=== PATIENT | female | born 1940 | race Caucasian/White ===

== ENCOUNTER 2025-02-12 16:49 | Inpatient (IN) | payer MEDICARE, MEDICAID ==
[~2025-02-12] VITALS: Ht 165.1 cm; Wt 60.0 kg
[~2025-02-12 16:49] MED LIST: ALBU18HF12 IH; ALBU2.5V39 NEB; APIX5TAB PO; BENZ-227 PO; FLUT1BLS12 IH; FLUT1BLS19 IH; METO25 PO; METO25XL PO; PROM6.2527 PO; TIOT185 IH; TIOT4MIS3 PO
[2025-02-12] MEDS ORDERED: ONDANSETRON HCL 4 MG/2 ML VIAL IVP PRN (17:15)
[2025-02-12] MEDS ORDERED: MORPHINE SULFATE 2 MG/ML SYRINGE IVP PRN (17:15)
[2025-02-12] MEDS ORDERED: MORPHINE SULFATE 4 MG/ML SYRINGE IVP PRN (17:19)
[2025-02-12 17:27] LABS: PLATELET COUNT (AUTO) 451 K/uL (150-450); RED BLOOD CELL COUNT(AUTO) 3.48 MIL/uL (4.00-5.20); RED CELL DISTRIBUTION WIDTH 16.8 % (11.5-14.5); WHITE BLOOD COUNT (AUTO) 9.7 K/uL (4.5-11.0)
[2025-02-12 17:34] LABS: CALCIUM, TOTAL 7.5 mg/dL (8.8-10.5); CREATININE 0.50 mg/dL (0.60-1.30); GLOMERULAR FILTR. RATE CALC > 60 mL/min (>60); GLUCOSE,RANDOM 116 mg/dL (70-110); SODIUM SERUM 142 mmol/L (136-145); UREA NITROGEN, BLOOD 24 mg/dL (7-18)
[2025-02-12] MEDS: SODIUM CHLORIDE 0.9% 1,000 ML IV ONE (17:43)
[2025-02-12 17:44] LABS: TROPONIN I-HIGH SENSITIVITY 8 ng/L (<51)
[2025-02-12] MEDS: DIGOXIN 250 MCG/ML 2 ML AMP IVP ONE (17:44)
[2025-02-12] MEDS ORDERED: ALBUTEROL SULFATE 2.5 MG/0.5 ML NEB SOLUTION NEB PRN (17:45)
[2025-02-12 17:48] LABS: ASPARTATE AMINOTRANSFERASE 15.0 U/L (15-37); TOTAL PROTEIN, SERUM 6.3 g/dL (6.4-8.2)
[2025-02-12] MEDS: POTASSIUM CHLORIDE 20 MEQ ER TABLET PO ONE (17:53)
[2025-02-12] MEDS: DILTIAZEM HCL 5 MG/ML 5 ML VIAL IVP ONE (19:17)
[2025-02-12] MEDS: MAGNESIUM SULFATE 1 GM in DEXTROSE 5%-WATER 50 ML IV ONE (19:19)
[2025-02-12] MEDS: DOCUSATE SODIUM 100 MG CAPSULE PO SCH (20:13)
[2025-02-12 22:10] VITALS: BP 151/88; PULSE 85; RESP 18; TEMP 97.7; O2SAT 94
[2025-02-12] MEDS: APIXABAN 5 MG TABLET PO SCH (23:10)
[2025-02-13] VITALS (8 sets, daily range): BP systolic 99–135; BP diastolic 55–78; PULSE 93–109; RESP 17–19; TEMP 97.7–98.4; O2SAT 94–98
[2025-02-13] MEDS ORDERED: HEPARIN SODIUM,PORCINE 5,000 UNITS/ML VIAL SQ SCH
[2025-02-13 06:52] LABS: PLATELET COUNT (AUTO) 456 K/uL (150-450); RED BLOOD CELL COUNT(AUTO) 3.85 MIL/uL (4.00-5.20); RED CELL DISTRIBUTION WIDTH 16.7 % (11.5-14.5); WHITE BLOOD COUNT (AUTO) 7.8 K/uL (4.5-11.0)
[2025-02-13 07:08] LABS: CALCIUM, TOTAL 8.7 mg/dL (8.8-10.5); CREATININE 0.54 mg/dL (0.60-1.30); GLOMERULAR FILTR. RATE CALC > 60 mL/min (>60); GLUCOSE,RANDOM 89 mg/dL (70-110); SODIUM SERUM 139 mmol/L (136-145); TROPONIN I-HIGH SENSITIVITY 21 ng/L (<51); UREA NITROGEN, BLOOD 24 mg/dL (7-18)
[2025-02-13 07:48] LABS: APPEARANCE,URINE HAZY (CLEAR); GLUCOSE, URINE (UA) NEGATIVE (NEGATIVE); LEUKOCYTE ESTERASE ,URINE LARGE (NEGATIVE); NITRATE,URINE NEGATIVE (NEGATIVE); OCCULT BLOOD,URINE NEGATIVE (NEGATIVE); SPECIFIC GRAVITIY, URINE 1.017 (1.003-1.030)
[2025-02-13] MEDS: FAMOTIDINE 20 MG TABLET PO SCH (08:26)
[2025-02-13] MEDS: TIOTROPIUM BROMIDE 18 MCG/INH HANDIHALER [5] IH SCH (08:29)
[2025-02-13] MEDS ORDERED: TIOTROPIUM BROMIDE 18 MCG/INH HANDIHALER [5] IH SCH (09:00)
[2025-02-13] MEDS: ACETAMINOPHEN 325 MG TABLET PO PRN (10:58)
[2025-02-14] VITALS (7 sets, daily range): BP systolic 106–127; BP diastolic 61–79; PULSE 60–109; RESP 18; TEMP 97.3–98.2; O2SAT 94–97
[2025-02-14] MEDS: DILTIAZEM HCL CD 120 MG ER CAPSULE PO SCH (10:15)
[2025-02-14] MEDS: MAGNESIUM HYDROXIDE SUSPENSION 30 ML UDCUP PO PRN (10:15)
[2025-02-14] MEDS ORDERED: METOPROLOL TARTRATE 5 MG/5 ML VIAL IVP PRN (14:00)
[2025-02-14] MEDS ORDERED: 0.9% SODIUM CHLORIDE 10 ML SYRINGE IVP ONE (17:21)
[2025-02-14] MEDS ORDERED: IOHEXOL 350 MG/ML 100 ML VIAL ONE (17:21)
[2025-02-14] MEDS ORDERED: SODIUM CHLORIDE 0.9% 100 ML ONE (17:21)
[2025-02-14] MEDS: METOPROLOL TARTRATE 25 MG TABLET PO SCH (21:50)
[2025-02-15 03:40] VITALS: BP 127/84; PULSE 96; RESP 18; TEMP 97.7; O2SAT 95
[2025-02-15 06:47] LABS: PLATELET COUNT (AUTO) 448 K/uL (150-450); RED BLOOD CELL COUNT(AUTO) 3.63 MIL/uL (4.00-5.20); RED CELL DISTRIBUTION WIDTH 17.2 % (11.5-14.5); WHITE BLOOD COUNT (AUTO) 5.7 K/uL (4.5-11.0)
[2025-02-15 06:56] LABS: CALCIUM, TOTAL 8.3 mg/dL (8.8-10.5); CREATININE 0.41 mg/dL (0.60-1.30); GLOMERULAR FILTR. RATE CALC > 60 mL/min (>60); GLUCOSE,RANDOM 82 mg/dL (70-110); SODIUM SERUM 136 mmol/L (136-145); UREA NITROGEN, BLOOD 15 mg/dL (7-18)
[2025-02-15 07:21] VITALS: BP 130/95; PULSE 95; RESP 16; TEMP 97.5; O2SAT 96
[2025-02-15 11:31] VITALS: BP 93/55; PULSE 60; RESP 16; TEMP 97.5; O2SAT 98
[2025-02-15 15:37] VITALS: BP 105/75; PULSE 88; RESP 16; TEMP 97.9; O2SAT 97
[2025-02-15 20:21] VITALS: BP 108/59; PULSE 91; RESP 17; TEMP 98.1; O2SAT 95
[2025-02-16] VITALS (7 sets, daily range): BP systolic 104–129; BP diastolic 57–81; PULSE 80–104; RESP 16–19; TEMP 97.7–98.2; O2SAT 95–98
[2025-02-16 07:30] LABS: PLATELET COUNT (AUTO) 439 K/uL (150-450); RED BLOOD CELL COUNT(AUTO) 3.63 MIL/uL (4.00-5.20); RED CELL DISTRIBUTION WIDTH 17.5 % (11.5-14.5); WHITE BLOOD COUNT (AUTO) 6.7 K/uL (4.5-11.0)
[2025-02-16 07:44] LABS: CALCIUM, TOTAL 8.1 mg/dL (8.8-10.5); CREATININE 0.38 mg/dL (0.60-1.30); GLOMERULAR FILTR. RATE CALC > 60 mL/min (>60); GLUCOSE,RANDOM 93 mg/dL (70-110); SODIUM SERUM 137 mmol/L (136-145); UREA NITROGEN, BLOOD 14 mg/dL (7-18)
[2025-02-17 03:28] VITALS: BP 107/55; PULSE 90; RESP 18; TEMP 98.4; O2SAT 96
[2025-02-17 07:09] LABS: PLATELET COUNT (AUTO) 432 K/uL (150-450); RED BLOOD CELL COUNT(AUTO) 3.31 MIL/uL (4.00-5.20); RED CELL DISTRIBUTION WIDTH 17.0 % (11.5-14.5); WHITE BLOOD COUNT (AUTO) 5.7 K/uL (4.5-11.0)
[2025-02-17 07:23] LABS: CALCIUM, TOTAL 8.0 mg/dL (8.8-10.5); CREATININE 0.42 mg/dL (0.60-1.30); GLOMERULAR FILTR. RATE CALC > 60 mL/min (>60); GLUCOSE,RANDOM 78 mg/dL (70-110); SODIUM SERUM 138 mmol/L (136-145); UREA NITROGEN, BLOOD 13 mg/dL (7-18)
[2025-02-17 08:43] VITALS: BP 118/73; PULSE 93; RESP 18; TEMP 97.3; O2SAT 96
[2025-02-17 12:12] VITALS: BP 103/61; PULSE 71; RESP 18; TEMP 97.5; O2SAT 97
[2025-02-17 16:02] VITALS: BP 106/55; PULSE 78; RESP 17; TEMP 97.9; O2SAT 96
[2025-02-17 21:19] VITALS: BP 126/60; PULSE 96; RESP 16; TEMP 98.5; O2SAT 98
[2025-02-18] VITALS: BP 102/66; PULSE 92; RESP 18; TEMP 97.7; O2SAT 96
[2025-02-18 04:50] VITALS: BP 119/64; PULSE 86; RESP 18; TEMP 97.7; O2SAT 95
[2025-02-18 06:44] LABS: PLATELET COUNT (AUTO) 437 K/uL (150-450); RED BLOOD CELL COUNT(AUTO) 3.43 MIL/uL (4.00-5.20); RED CELL DISTRIBUTION WIDTH 17.4 % (11.5-14.5); WHITE BLOOD COUNT (AUTO) 6.3 K/uL (4.5-11.0)
[2025-02-18 06:54] LABS: CALCIUM, TOTAL 8.7 mg/dL (8.8-10.5); CREATININE 0.59 mg/dL (0.60-1.30); GLOMERULAR FILTR. RATE CALC > 60 mL/min (>60); GLUCOSE,RANDOM 91 mg/dL (70-110); SODIUM SERUM 136 mmol/L (136-145); UREA NITROGEN, BLOOD 14 mg/dL (7-18)
[2025-02-18 08:16] VITALS: BP 111/69; PULSE 74; RESP 16; TEMP 98.2; O2SAT 95
[2025-02-18] MEDS ORDERED: DILT120C89 PO (11:50)
[2025-02-18 11:52] VITALS: BP 106/64; PULSE 78; RESP 19; TEMP 98.1; O2SAT 98
== END 2025-02-18 14:45 | disposition hospice, home (50) | DRG 309 ==
LOC: EMS 16:50 → EDH 17:07 → 5N 22:09
PROVIDERS: ADMIT Internal Medicine; ATTEND Internal Medicine
DX: I48.0 Paroxysmal atrial fibrillation (principal); C78.6 Secondary malignant neoplasm of retroperitoneum and peritoneum; R64 Cachexia; E44.0 Moderate protein-calorie malnutrition; J91.8 Pleural effusion in other conditions classified elsewhere; D63.8 Anemia in other chronic diseases classified elsewhere; E88.09 Other disorders of plasma-protein metabolism, not elsewhere classified; I50.30 Unspecified diastolic (congestive) heart failure; I11.0 Hypertensive heart disease with heart failure; J43.9 Emphysema, unspecified; E46 Unspecified protein-calorie malnutrition; R91.1 Solitary pulmonary nodule; E87.6 Hypokalemia; Z88.0 Allergy status to penicillin; Z68.22 Body mass index [BMI] 22.0-22.9, adult
CPT/HCPCS: 71045; 71275; 80048; 80076; 81001; 83735; 83880; 84443; 84484; 85025; 85610; 85730; 87086; 93005; 93306; 97110; 97116; 97163; 97530; 99285; J1160; J3475; J3490; J7050; J7060; 36415-L1; 36415-TC